=== PATIENT | male | born 1985 | race Hispanic/Latino ===

== ENCOUNTER 2021-02-03 07:08 | Emergency (ER) | payer OTHER ==
--- NOTE | 2021-02-03 07:38 | Emergency Department Report ---
ED Chest Pain HPI - General Chief Complaint: Chest Pain Stated Complaint: VOMITING/TAKES COUMADIN Time Seen by Provider: 02/03/21 07:25 Source: EMS Mode of arrival: Ambulatory Limitations: No Limitations - History of Present Illness Initial Comments: 35-year-old male, history of aortic valve replacement, presents to ED in police custody with complaint of chest pain. Patient states pain started on yesterday. States pain is constant, right-sided, "feels like a knot in my chest." He denies any associated shortness of breath, cough, fever. He reports some nausea and vomiting. Patient reports tobacco and marijuana use. Patient states he takes Coumadin for his valve replacement. Patient states he missed yesterday's dose because his medication is at his mother's house. Patient states that time he had his INR level checked it was supratherapeutic. He is unable to tell me when that was. MD Complaint: chest pain -: days(s) (2) Onset: during rest Pain Location: right chest Pain Radiation: none Severity: moderate Quality: other ("feels like a knot") Consistency: constant Improves With: nothing Worsens With: palpation, movement re: nausea, vomting. denies: diaphoresis, dyspnea Other Symptoms: denies: cough, fever, leg swelling - Related Data Allergies Allergy/AdvReac Type Severity Reaction Status Date / Time B-6 Vitamin AdvReac Swelling Uncoded 02/03/21 08:03 Heart Score - HEART Score History: Slightly suspicious EKG: Normal Age: < 45 Risk factors: 1-2 risk factors Troponin: < normal limit HEART Score: 1 - EKG Read Time Time EKG Completed: 07:16 EKG Read Time: 07:25 ED Review of Systems ROS: Stated complaint: VOMITING/TAKES COUMADIN Other details as noted in HPI Comment: All other systems reviewed and negative Constitutional: denies: fever Respiratory: denies: cough, shortness of breath Cardiovascular: chest pain Gastrointestinal: nausea, vomiting ED Physical Exam - General Limitations: No Limitations General appearance: alert, in no apparent distress - Head Head exam: Present: atraumatic, normocephalic - Eye Eye exam: Present: normal appearance, EOMI - ENT ENT exam: Present: mucous membranes moist - Neck Neck exam: Present: normal inspection - Respiratory Respiratory exam: Present: normal lung sounds bilaterally, chest wall tenderness (right anterior chest wall). Absent: respiratory distress - Cardiovascular Cardiovascular Exam: Present: regular rate, normal rhythm - GI/Abdominal GI/Abdominal exam: Present: soft. Absent: distended, tenderness - Extremities Exam Extremities exam: Present: normal inspection. Absent: pedal edema, calf tend erness - Neurological Exam Neurological exam: Present: alert, oriented X3 - Psychiatric Psychiatric exam: Present: normal affect, normal mood - Skin Skin exam: Present: warm, dry, intact, normal color ED Course Vital Signs 02/03/21 02/03/21 02/03/21 08:01 08:16 08:31 Temperature 97.5 F L Pulse Rate 83 80 78 Respiratory 12 18 12 Rate Blood Pressure 140/89 140/88 133/86 O2 Sat by Pulse 98 98 99 Oximetry 02/03/21 02/03/21 02/03/21 09:01 09:31 10:01 Temperature Pulse Rate 74 70 66 Respiratory 13 10 L 11 L Rate Blood Pressure 136/89 146/92 140/95 O2 Sat by Pulse 99 100 100 Oximetry 02/03/21 02/03/21 10:31 11:01 Temperature Pulse Rate 66 70 Respiratory 12 11 L Rate Blood Pressure 153/96 141/95 O2 Sat by Pulse 99 100 Oximetry ED Medical Decision Making - Lab Data Result diagrams: 02/03/21 07:34 02/03/21 07:34 - EKG Data -: EKG Interpreted by Nd EKG shows normal: sinus rhythm, axis, intervals, QRS complexes, ST-T waves Rate: normal - EKG Data Interpretation: no acute changes - Radiology Data Radiology results: report reviewed, image reviewed - Medical Decision Making 35-year-old male presents to ED with right-sided chest wall pain. Pain worse with palpation. He denies any shortness of breath. EKG shows no ST changes. Troponin is normal. Chest x-ray is unremarkable. INR is subtherapeutic. Patient given 1 dose of Coumadin here in the ED. Advised to continue his medication at home. States his medication is at his mother's house which is why he missed yesterday's dose and maybe the day before as well. Patient will be discharged at this time. Outpatient follow-up advised, return precautions given. - Differential Diagnosis Chest wall pain, ACS, supratherapeutic INR Critical care attestation.: If time is entered above; I have spent that time in minutes in the direct care of this critically ill patient, excluding procedure time. ED Disposition Clinical Impression: Chest wall pain Disposition: DC-01 TO HOME OR SELFCARE Is pt being admited?: No Condition: Stable Instructions: Chest Wall Pain, [id number], Nonspecific Chest Pain, Adult Referrals: [facility] [Other] - 3-5 Days Time of Disposition: 09:02
[2021-02-03 07:57] LABS: Basophils % (Auto) 0.9 % (0.0-1.8); Eosinophils # (Auto) 0.1 K/mm3 (0.0-0.4); Hematocrit 34.5 % (35.5-45.6); Hemoglobin 11.5 gm/dl (11.8-15.2); Lymphocytes # (Auto) 1.1 K/mm3 (1.2-5.4); Lymphocytes % (Auto) 22.5 % (13.4-35.0); Mean Corpuscular HGB Conc 33 % (32-34); Mean Corpuscular Volume 88 fl (84-94); Monocytes # (Auto) 0.4 K/mm3 (0.0-0.8); Monocytes % (Auto) 9.2 % (0.0-7.3); Platelet Count 224 K/mm3 (140-440); Red Blood Count 3.91 M/mm3 (3.65-5.03); Red Cell Distribution Width 16.7 % (13.2-15.2)
[2021-02-03 08:07] LABS: INR 1.12 (0.87-1.13)
[2021-02-03 08:17] LABS: BUN/Creatinine Ratio 15; Blood Urea Nitrogen 15 mg/dL (9-20); Calcium 9.4 mg/dL (8.4-10.2); Hemolysis Index 102
--- NOTE | 2021-02-03 08:32 | XRay Report ---
CHEST 1 VIEW, 02/03/2021 7:23 AM CLINICAL INFORMATION/INDICATION: Chest pain COMPARISON: None FINDINGS: SUPPORT DEVICES: None. HEART: The cardiac silhouette is normal in size. LUNGS/PLEURA: The lungs are clear of focal airspace disease or significant pleural effusion. ADDITIONAL FINDINGS: No additional acute findings. IMPRESSION: 1. No evidence of acute cardiopulmonary process. Signer Name: Brittny Munoz MD Signed: 02/03/2021 8:27 AM Workstation Name: [id number]
[2021-02-03] MEDS ORDERED: WARFARIN 5 MG TAB PO ONE (09:30)
--- NOTE | 2021-02-03 10:39 | Electrocardiograph Report ---
[facility] Test Date: 2021-02-03 Test Time: 07:16:52 Pat Name: ELVIS CURIEL Department: Room: Gender: M Rn Digestive: TANVIR : 1985 Requested By: MARLEN HARDEN Order Number: [id number] Reading MD: Jaycob Gomez Measurements Intervals Cory Rate: 83 P: 9 LA: 160 QRS: 82 QRSD: 98 T: 67 QT: 389 QTc: 458 Interpretive Statements Sinus rhythm No previous ECG available for comparison Electronically Signed On 02-03-2021 10:38:51 EDT by Jaycob Gomez
[2021-02-03 11:06] VITALS: BP 141/95
== END 2021-02-03 11:10 | disposition home or self-care (01) ==
LOC: EEVIPCON 07:08 → ED 07:08
DX: R07.89 Other chest pain (principal); Z88.8 Allergy status to other drugs, medicaments and biological substances
CPT/HCPCS: 36415; 71045; 80048; 84484; 85025; 85610; 85730; 93005

== ENCOUNTER 2021-04-29 16:02 | Emergency (ER) | payer SELFPAY | END 2021-04-29 17:36 | disposition left against medical advice (07) | LOC: ED 16:02 | DX: Z00.00 Encounter for general adult medical examination without abnormal findings (principal); Z53.21 Procedure and treatment not carried out due to patient leaving prior to being seen by health care provider ==

== ENCOUNTER 2021-04-30 14:02 | Emergency (ER) | payer SELFPAY ==
--- NOTE | 2021-04-30 14:32 | Emergency Department Report ---
ED General Adult HPI - General Chief complaint: Recheck/Abnormal Lab/Rx Stated complaint: BLOOD THINNERS Time Seen by Provider: 04/30/21 14:10 Source: patient Mode of arrival: Ambulatory Limitations: No Limitations - History of Present Illness Initial comments: 35-year-old male presents to the ER today requesting refill on his Coumadin and INR level checked. He states that he has artificial heart valve which was replaced in 2019 and was placed on Coumadin since. Patient states that he has been off his Coumadin for the past 3 days. He states that he is unsure of his last INR level. Patient states that he recently moved here from [place] 2 weeks ago and does not currently have a PCP. He admits that he is homeless. He denies any chest pain, shortness of breath, fever or chills. He denies any alcohol abuse. He states that he smokes marijuana and tobacco. He denies any illicit drug use. Complaint: Coumadin refill/Need INR -: days(s) (3) - Related Data Previous Rx's Medication Instructions Recorded Last Taken Type Warfarin [Coumadin] 5 mg PO QDAY #30 tablet 04/30/21 Unknown Rx Allergies Allergy/AdvReac Type Severity Reaction Status Date / Time B-6 Vitamin AdvReac Swelling Uncoded 02/03/21 08:03 ED Review of Systems ROS: Stated complaint: BLOOD THINNERS Other details as noted in HPI Comment: All other systems reviewed and negative Constitutional: no symptoms reported. denies: chills, diaphoresis, fever, malaise, weakness Eyes: denies: eye pain, eye discharge, vision change ENT: denies: ear pain, throat pain Respiratory: denies: cough, shortness of breath, wheezing Cardiovascular: denies: chest pain, palpitations, dyspnea on exertion, edema, syncope, paroxysmal nocturnal dyspnea Endocrine: no symptoms reported Gastrointestinal: denies: abdominal pain, nausea, diarrhea Genitourinary: denies: urgency, dysuria, frequency, hematuria, discharge, testicular pain, testicular mass Musculoskeletal: denies: back pain, joint swelling, arthralgia Skin: denies: rash, lesions Neurological: denies: headache, weakness, numbness, paresthesias, confusion, abnormal gait, vertigo Psychiatric: denies: anxiety, depression, auditory hallucinations, visual hallucinations, homicidal thoughts, suicidal thoughts Hematological/Lymphatic: denies: easy bleeding, easy bruising, swollen glands ED Past Medical Hx - Past Medical History Previous Medical History?: Yes Additional medical history: Artificial heart valve - Social History Smoking Status: Unknown if ever smoked - Medications Home Medications: Home Medications Medication Instructions Recorded Confirmed Last Taken Type Warfarin [Coumadin] 5 mg PO QDAY #30 tablet 04/30/21 Unknown Rx ED Physical Exam - General Limitations: No Limitations General appearance: alert, in no apparent distress - Head Head exam: Present: atraumatic, normocephalic, normal inspection - Eye Eye exam: Present: normal appearance, PERRL, EOMI Pupils: Present: normal accommodation - ENT ENT exam: Present: normal exam, mucous membranes moist, TM's normal bilaterally - Neck Neck exam: Present: normal inspection, full ROM - Respiratory Respiratory exam: Present: normal lung sounds bilaterally. Absent: respiratory distress, wheezes, rales, rhonchi, stridor - Cardiovascular Cardiovascular Exam: Present: regular rate, normal rhythm, normal heart sounds - GI/Abdominal GI/Abdominal exam: Present: soft. Absent: distended, tenderness, guarding, rebound, rigid - Neurological Exam Neurological exam: Present: alert, oriented X3, CN II-XII intact, normal gait - Psychiatric Psychiatric exam: Present: normal affect, normal mood - Skin Skin exam: Present: intact ED Course Vital Signs 04/30/21 04/30/21 14:09 16:10 Temperature 98.3 F 98.0 F Pulse Rate 108 H 71 Respiratory 16 14 Rate Blood Pressure 114/69 Blood Pressure 121/75 [Right] O2 Sat by Pulse 96 99 Oximetry ED Medical Decision Making - Medical Decision Making Patient INR 0.88. Patient is likely subtherapeutic because he has been out of his medication for the past 3 days. He will be restarted on his usual dose of Coumadin 5 mg daily. He has no complaints at this time. He will be given referral to PCP for continued monitoring of his INR and Coumadin. Patient was stable at time of discharge Critical care attestation.: If time is entered above; I have spent that time in minutes in the direct care of this critically ill patient, excluding procedure time. ED Disposition Clinical Impression: Medication refill, Hx of artificial heart valve replacement Disposition: HOME / SELF CARE / HOMELESS Is pt being admited?: No Does the pt Need Aspirin: No Condition: Stable Instructions: What You Need to Know About Warfarin Additional Instructions: I recommend that you start taking the Coumadin today and take it as prescribed. Follow-up with one of the primary care doctors listed on your discharge instructions for continued monitoring of your INR and refills on your Coumadin. Return to the ER if your symptoms changes or worsens in any way Prescriptions: Warfarin [Coumadin] 5 mg PO QDAY #30 tablet Referrals: EDWARD LYLE MD [Staff Physician] - 3-5 Days [facility] [Provider Group] - 3-5 Days Forms: Work/School Release Form(ED) Time of Disposition: 16:05 Print Language: [id number]
[2021-04-30 16:11] VITALS: BP 121/75
[2021-04-30 19:13] LABS: INR 0.88 (0.87-1.13)
== END 2021-04-30 16:11 | disposition home or self-care (01) ==
LOC: ED 14:02
DX: Z95.2 Presence of prosthetic heart valve (principal); Z76.0 Encounter for issue of repeat prescription; Z59.00 Homelessness unspecified; Z79.01 Long term (current) use of anticoagulants
CPT/HCPCS: 36415; 85610; 99283